=== PATIENT | female | born 1970 | race Caucasian/White ===

== ENCOUNTER 2024-11-10 07:50 | Day surgery (SDC) | payer BC ==
[2024-11-10] MEDS ORDERED: Propofol 200 MG/20 ML SDV IV ONE (07:51)
[2024-11-10] MEDS ORDERED: Sodium Chloride 0.9% 10 ML Syringe FLUSH PRN (08:00)
[2024-11-10] MEDS: Lactated Ringers 1,000 ML IV SCH (08:20)
[2024-11-10] MEDS ORDERED: Propofol 200 MG/20 ML SDV ONE ×2 (08:59→09:32)
[2024-11-10] MEDS ORDERED: Midazolam 1 MG/ML 2 ML SDV ONE (08:59)
[2024-11-10] MEDS ORDERED: Lactated Ringers 1,000 ML ONE (09:34)
[2024-11-10 12:43] VITALS: BP 128/74; PULSE 62
== END 2024-11-10 10:47 | disposition home or self-care (01) ==
LOC: KA.SDS 07:50
PROVIDERS: ATTEND Family Medicine
DX: Z12.11 Encounter for screening for malignant neoplasm of colon (principal); K63.5 Polyp of colon; K64.8 Other hemorrhoids; Z80.0 Family history of malignant neoplasm of digestive organs; E03.9 Hypothyroidism, unspecified; Z79.890 Hormone replacement therapy; Z79.899 Other long term (current) drug therapy
CPT/HCPCS: 00811; J2250; J2704; J7120